=== PATIENT | female | born 1995 | race Caucasian/White ===

== ENCOUNTER 2017-09-26 00:44 | Inpatient (IN) ==
[2017-09-26] MEDS ORDERED: MOM Conc 10 ML UD.LIQ PO PRN (01:03)
[2017-09-26] MEDS ORDERED: *HR* LORazepam 1 MG TABLET PO PRN (01:03)
[2017-09-26] MEDS ORDERED: Haloperidol Lactate 5 MG/ML VIAL IM PRN (01:03)
[2017-09-26] MEDS ORDERED: hydrOXYzine pamoate 25 MG CAPSULE PO PRN (01:03)
[2017-09-26] MEDS ORDERED: *HR* LORazepam 2 MG/ML VIAL IM PRN (01:03)
[2017-09-26] MEDS ORDERED: Mag Hydrox/Al Hydrox/Simeth 30 ML UDC PO PRN (01:03)
[2017-09-26] MEDS ORDERED: Ibuprofen 400 MG TABLET PO PRN (01:03)
--- NOTE | 2017-09-26 12:26 | Psychiatry History & Physical ---
Date of Encounter: 09/26/17 Time of Encounter: 11:50 History of Present Illness Patient Stated Chief Complaint: Suicidal ideation and auditory hallucinations Medicare Admission Attestation: For traditional Medicare patients the provided hospital inpatient services are reasonable and necessary and in the case of services not specified as inpatient -only under 42 CFR 419.22 (n), that they are appropriately provided as inpatient services in accordance 42 CFR 412.3. For Critical Access Hospital the patient may reasonably be expected to be discharged or transferred to a hospital within 96 hours after admission to the Critical Access Hospital. Admitted From: Hospital to Hospital Transfer ([facility]) History of Present Illness: Ms. Meredith is a 21 year old female admitted from his pharmacy [facility] [place] for suicidal ideation and self-mutilation and auditory hallucinations. Patient had no previous psychiatric history and she was taken by family to hospital for evaluation of increasing depression self-mutilation and suicidal ideation. Patient also reported hearing voices telling her to cut herself. UDS was positive for THC patient stated that she use 4 times daily. Denies any history of outpatient treatment or hospitalization. Denies any history of treatment with medication. Denies any use of alcohol or other drugs. She has 11th grade education with some LD classes. Past Med Surg Social Fam HX - Past Medical History Medical history: no medical history - Past Psychiatric History Psychiatric history: Reports: no psych history - Social History Smoking Status: Never smoker Smokeless Tobacco Status: No Alcohol use: none Drug use: marijuana Medications & Allergies No Known Home Drugs 09/26/17 [History] 3 Allergy/AdvReac Type Severity Reaction Status Date / Time acetaminophen [From Tylenol] Allergy Anaphylaxis Verified 09/26/17 01:03 Review of Systems Psychiatric: Reports: depression, suicidal ideation Mental Status Exam Patient orientation: Yes Person, Yes Time, Yes Place Level of alertness: Alert Patient appearance: Appropriate, Well Groomed, Obese Behavior: calm, cooperative, talkative Psychomotor activity: Increased Eye contact: Maintains Eye Contact Mood description: Euthymic/stable, Depressed Affect description: congruent with mood, constricted Speech pattern: Normal rate, Normal rhythm, Normal tone, Excessive Speech volume: Normal Thought process: Linear, Goal Oriented Thought content: Yes Suicidal ideation, No Homicidal ideation, No Overt delusions Perceptual disturbances: Yes Auditory hallucinations, No Visual hallucinations Attention span: Capable of Focused Attention Memory description: Grossly Intact Patient reliability: Reliable Historian Intelligence estimate: Average Judgment: Limited Insight: Partial Results - Vital Signs Vital signs: Temp Pulse Resp BP 97.3 F L 71 18 120/88 09/26/17 09:00 09/26/17 09:00 09/26/17 09:00 09/26/17 09:00 Assessment and Plan (1) Severe major depression, single episode, with psychotic features Current visit: Yes Status: Acute Plan: Admit inpatient for safety and stabilization, Close observation, Suicide Precautions per unit protocol, Encourage participation in unit milieu, Group Therapy, Monitor sleep, Monitor appetite Additional Plan: We will start patient on citalopram 20 mg daily and Abilify 2 mg daily. Benefits and side effect were discussed patient is agreeable to start we will monitor Risks, benefits, side effects, alternatives discussed w/pt: Yes Patient agreeable to treatment: Yes
[2017-09-26] MEDS: ARIPiprazole 2 MG TABLET PO SCH (21:41)
[2017-09-26] MEDS: traZODone 50 MG TABLET PO PRN (22:00)
--- NOTE | 2017-09-27 12:41 | Psychiatry Progress Note ---
Date of Encounter: 09/27/17 Time of Encounter: 12:38 Subjective Interval history: Patient seen for follow-up. She reports some gastrointestinal side effects from the new medicine possibly Celexa. Otherwise she is feeling better, attending groups and denies suicidal ideation. She is interacting appropriately with peers and staff. Her discharge plans are ongoing. Review of Systems Psychiatric: Reports: depression, suicidal ideation Objective: Exam Patient orientation: Yes Person, Yes Time, Yes Place Level of alertness: Alert Patient appearance: Appropriate, Well Groomed, Obese Behavior: calm, cooperative, anxious, dramatic Psychomotor activity: Normal Eye contact: Maintains Eye Contact Mood description: Euthymic/stable, Anxious, Labile Affect description: congruent with mood, labile Speech pattern: Normal rate, Normal rhythm, Normal tone, Limited Speech volume: Normal Thought process: Linear, Goal Oriented, Tangential, [place] Thought content: No Suicidal ideation, No Homicidal ideation, No Overt delusions Perceptual disturbances: No Auditory hallucinations, No Visual hallucinations Judgment: Fair Insight: Partial Results - Vital Signs Vital Signs: Temp Pulse Resp BP 98.3 F 69 18 130/84 09/27/17 09:00 09/27/17 09:00 09/27/17 09:00 09/27/17 09:00 Assessment and Plan (1) Severe major depression, single episode, with psychotic features Current visit: Yes Status: Acute Plan: Continue hospitalization, Close observation, Suicide Precautions per unit protocol, Encourage participation in unit milieu, Group Therapy, Monitor sleep, Monitor appetite Risks, benefits, side effects, alternatives discussed w/pt: Yes Patient agreeable to treatment: Yes Consult Discharge Plan - Plan Referrals: Antonieta Flynn [facility] [place] [Outside] (To establish in services, you may walk -in any Sunday through Sunday from 8:00am 12:00pm or 1:00pm 4:00pm. When you come in, you will be completing paperwork, meeting with an department clinician , and developing a treatment plan. You will receive follow- up appointments for on-going mental health services, which could include community support, individual counseling, groups and/or psychiatric medication management. You may also be referred to see the primary care provider in the clinic if needed as well. Please bring your insurance card, photo ID and medication list when you come in the first time. )
[2017-09-27] MEDS: ARIPiprazole 2 MG TABLET PO SCH (20:21)
[2017-09-27] MEDS: traZODone 50 MG TABLET PO PRN (20:21)
--- NOTE | 2017-09-28 12:02 | Psychiatry Progress Note ---
Date of Encounter: 09/28/17 Time of Encounter: 11:58 Subjective Interval history: Patient is here for follow-up. She reports no side effects from taking the medication after meals, denies any problem with sleep. She is still anxious and labile. She is participating in activities. She denies suicidal ideation. She was educated about medication and treatment compliance. She is motivated to work on a safety plan. She will sign in voluntarily to continue her treatment. Review of Systems Psychiatric: Reports: depression, suicidal ideation Objective: Exam Patient orientation: Yes Person, Yes Time, Yes Place Level of alertness: Alert Patient appearance: Appropriate, Well Groomed Behavior: calm, cooperative, anxious Psychomotor activity: Normal Eye contact: Maintains Eye Contact Mood description: Euthymic/stable, Labile Affect description: congruent with mood, full range, labile Speech pattern: Normal rate, Normal rhythm, Normal tone Speech volume: Normal Thought process: Linear, Goal Oriented Thought content: No Suicidal ideation, No Homicidal ideation, No Overt delusions Perceptual disturbances: No Auditory hallucinations, No Visual hallucinations Judgment: Fair Insight: Partial Results - Vital Signs Vital Signs: Temp Pulse Resp BP 97.4 F L 67 14 110/70 09/28/17 09:00 09/28/17 09:00 09/28/17 09:00 09/28/17 09:00 Assessment and Plan (1) Severe major depression, single episode, with psychotic features Current visit: Yes Status: Acute Plan: Continue hospitalization, Close observation, Suicide Precautions per unit protocol, Encourage participation in unit milieu, Group Therapy, Monitor sleep, Monitor appetite Risks, benefits, side effects, alternatives discussed w/pt: Yes Patient agreeable to treatment: Yes Consult Discharge Plan - Plan Referrals: Antonieta Flynn [facility] [place] [Outside] (To establish in services, you may walk -in any Sunday through Sunday from 8:00am 12:00pm or 1:00pm 4:00pm. When you come in, you will be completing paperwork, meeting with an secy , and developing a treatment plan. You will receive follow- up appointments for on-going mental health services, which could include community support, individual counseling, groups and/or psychiatric medication management. You may also be referred to see the primary care provider in the clinic if needed as well. Please bring your insurance card, photo ID and medication list when you come in the first time. )
[2017-09-28] MEDS: ARIPiprazole 2 MG TABLET PO SCH (21:10)
[2017-09-28] MEDS: traZODone 50 MG TABLET PO PRN (22:56)
[2017-09-29 10:03] VITALS: BP 119/80
--- NOTE | 2017-09-29 13:08 | Discharge Summary ---
Date of Encounter: 09/29/17 Time of Encounter: 12:10 Diagnosis - Discharge Diagnosis (1) Severe major depression, single episode, with psychotic features Status: Acute Medications - Discharge Medications Prescriptions: ARIPiprazole [Abilify] 2 mg PO HS #30 tablet Citalopram [CeleXA] 20 mg PO DAILY #30 tablet Omeprazole [PriLOSEC] 20 mg PO DAILY@0730 #30 capsule. traZODone [TraZODone] 50 mg PO HS PRN #30 tablet PRN Reason: Insomnia ARIPiprazole [Abilify] 2 mg PO HS #30 tablet 09/29/17 [Rx] Citalopram [CeleXA] 20 mg PO DAILY #30 tablet 09/29/17 [Rx] Omeprazole [PriLOSEC] 20 mg PO DAILY@0730 #30 capsule. 09/29/17 [Rx] traZODone [TraZODone] 50 mg PO HS PRN #30 tablet 09/29/17 [Rx] 3 Allergy/AdvReac Type Severity Reaction Status Date / Time acetaminophen [From Tylenol] Allergy Anaphylaxis Verified 09/26/17 01:03 Provider Date of admission: 09/26/17 00:44 Primary care physician: PCP NONE Discharging clinician: Yamileth Lopez Assessment and Plan - Patient/Caregiver Discharge Instructions Activity: resume usual activities as tolerated Diet: regular diet - Follow up Plan Follow up with: Antonieta Flynn [facility] [place] [Outside] (To establish in services, you may walk -in any Sunday through Sunday from 8:00am 12:00pm or 1:00pm 4:00pm. When you come in, you will be completing paperwork, meeting with an electrical estimator , and developing a treatment plan. You will receive follow- up appointments for on-going mental health services, which could include community support, individual counseling, groups and/or psychiatric medication management. You may also be referred to see the primary care provider in the clinic if needed as well. Please bring your insurance card, photo ID and medication list when you come in the first time. ) Functional capacity at discharge: independent ambulation Overall status at discharge: Stable Disposition: Home, Self-Care Hospital Course Hospital course: Ms. Meredith is a 21 year old female who was referred for hospitalization for severe depression and hopelessness helplessness and suicidal ideations and how to treat hallucinations. After reviewing the symptom diagnoses and treatment plan exploring the risk-benefit side effects alternative to treatment and getting an informed consent from the patient patient was started on Celexa 20 mg daily for her depression and Abilify 2 mg at bedtime for her psychotic symptoms trazodone 50 mg at bedtime for her insomnia. Patient was also started on Prilosec for her GERD. Patient started to notice improvement in her mood or depression hopelessness helplessness suicidal ideations along with auditory hallucinations subsided. She attended groups participated in activities and learn coping skills and developed a good safety plan. She was future oriented denies any suicidal or homicidal ideation or any psychotic or manic symptoms at the time of discharge. Overall her discharge condition was stable. Time spent discussing smoking cessation with patient: 3 to 10 minutes Does patient wish to continue nicotine replacement upon disc: No - Time Spent with Patient Total time spent providing and/or coordinating discharge services: Less than 30 minutes Quality - Multiple Antipsychotics Patient discharged on 2 or more antipsychotic medications: No Procedures - Procedures Procedures: Medication Management, Crisis Stabilization, Supportive Therapy, Group Therapy, Psychoeducational Therapy Mental Status Exam - Mental Status Exam Patient orientation: Yes Person, Yes Time, Yes Place Level of alertness: Alert Patient appearance: Appropriate, Well Groomed Behavior: calm, cooperative Psychomotor activity: Normal Eye contact: Maintains Eye Contact Mood description: Euthymic/stable Affect description: congruent with mood, full range Speech pattern: Normal rate, Normal rhythm, Normal tone Speech Volume: Normal Thought process: Linear, Goal Oriented Thought Content: No Suicidal ideation, No Homicidal ideation, No Overt delusions Perceptual Disturbances: No Auditory hallucinations, No Visual hallucinations Judgment: Limited Insight: Partial
[2017-09-29] MEDS ORDERED: FLUARIX QUAD 2017-18 36MOS UP/PF 0.5 ML SYRINGE IM ONE (14:01)
== END 2017-09-29 15:05 | disposition home or self-care (01) | DRG 751 ==
LOC: SUATTDRO 00:44 → 1ANU 00:44
PROVIDERS: ADMIT Psychiatry & Neurology Psychiatry; ATTEND Psychiatry & Neurology Psychiatry